=== PATIENT | male | born 1950 | race Caucasian/White ===

== ENCOUNTER 2018-05-17 17:20 | Emergency (ER) | payer MEDICARE ==
[2018-05-17] MEDS ORDERED: BUFFERED LIDOCAINE 10 ML SYRINGE SUBQ ONE (17:35)
--- NOTE | 2018-05-17 17:36 | ED Physician Documentation ---
PD HPI UPPER EXT INJURY - Stated complaint Stated Complaint: L HAND LAC/SHANNON NAIL - Chief complaint Chief Complaint: Laceration - History obtained from History obtained from: Patient - History of Present Illness Location: Left (Obtain a gentleman who is up-to-date on tetanus fell while building a deck, not work-related and ripped his hand on a shannon nail just prior to arrival.) Review of Systems Constitutional: reports: Reviewed and negative Throat: reports: Reviewed and negative Cardiac: reports: Reviewed and negative PD PAST MEDICAL HISTORY - Allergies Allergies/Adverse Reactions: Allergies Allergy/AdvReac Type Severity Reaction Status Date / Time No Known Drug Allergies Allergy Verified 05/17/18 17:25 PD ED PE NORMAL - Vitals Vital signs reviewed: Yes - General General: Alert and oriented X 3, No acute distress - Extremities Extremities: Other (In the webspace of the left hand between the first and second digits there is a 1 cm curved laceration without neurovascular or tendon compromise.) - Neuro Neuro: Alert and oriented X 3, Normal speech Results - Vitals Vitals: Vital Signs - 24 hr 05/17/18 17:23 Temperature 36.8 C Heart Rate 77 Respiratory 16 Rate Blood Pressure 140/100 H O2 Saturation 99 Oxygen O2 Source Room air - Rads (name of study) L hand 3v Radiology: EMP read contemporaneously (There is some metal dust in the laceration) Procedures - Laceration (location) L hand Length in cm: 1 Wound type: Curved Anesthesia: Lidocaine 1%, With bicarb Wound Preparation: Hibiclens, Irrigated copiously NS Skin layer closure: Nylon, Interrupted, Size #-0 - enter number (4-0), Sutures - enter # (3) Other: Tetanus UTD PD MEDICAL DECISION MAKING - ED course ED course: 67-year-old gentleman with laceration from a shannon nail. He is up-to-date on tetanus. The wound was cleansed and closed. An x-ray was done, no bony injury but he has some tiny metal flecks which are too small to retrieve. - Sepsis Event Vital Signs: Vital Signs - 24 hr 05/17/18 17:23 Temperature 36.8 C Heart Rate 77 Respiratory 16 Rate Blood Pressure 140/100 H O2 Saturation 99 Oxygen O2 Source Room air Departure - Departure Disposition: 01 Home, Self Care Clinical Impression: Laceration Condition: Good Record reviewed to determine appropriate education?: Yes Instructions: ED Laceration All Comments: Come back for any signs of infection which would include: Redness, swelling, drainage, increased pain, or fevers. Follow-up with your physician in 14 days for suture removal. Your blood pressure was elevated today on check into the emergency department. This does not mean that you have hypertension, it is a common phenomenon to come to the emergency department and have elevated blood pressure. I recommend that you see your primary care physician within the week to have it rechecked when you are feeling better. Discharge Date/Time: 05/17/18 19:17
--- NOTE | 2018-05-17 18:04 | XRAY Report ---
Reason: hand inj Procedure Date: 05/17/2018 Accession Number: [id number] / [id number] Procedure: XR - Hand 3 View LT CPT Code: FULL RESULT: EXAM: LEFT HAND RADIOGRAPHY EXAM DATE: 05/17/2018 05:55 PM. CLINICAL HISTORY: Fall. Hand injury. COMPARISON: None available. TECHNIQUE: 3 views. FINDINGS: No acute fracture or dislocation. Osseous alignment is normal. There is narrowing of the interphalangeal joints of all fingers. There are multiple punctate densities in the region of soft tissue laceration between the first and second finger web space. These may represent tiny foreign bodies. IMPRESSION: No acute fracture or dislocation of the left hand. Possible retained punctate foreign bodies in the first and second finger web space. Clinical correlation recommended. RADIA
[2018-05-17 19:17] VITALS: BP 141/79
== END 2018-05-17 19:17 | disposition home or self-care (01) ==
LOC: ED 17:20
DX: S61.422A Laceration with foreign body of left hand, initial encounter (principal); W19.XXXA Unspecified fall, initial encounter; Y93.H3 Activity, building and construction
CPT/HCPCS: 12001; 99283

== ENCOUNTER 2018-12-14 09:54 | Outpatient (CLI) | payer MEDICARE, OTHER | END 2018-12-14 09:55 | disposition home or self-care (01) | LOC: SC 09:54 | PROVIDERS: ATTEND Internal Medicine Pulmonary Disease | DX: G47.33 Obstructive sleep apnea (adult) (pediatric) (principal) | CPT/HCPCS: 99203; G0463; 99212 ==

== ENCOUNTER 2019-03-23 10:18 | Outpatient (CLI) | payer MEDICARE, OTHER ==
[2019-03-23 11:12] VITALS: BP 144/68
--- NOTE | 2019-03-23 11:12 | SLEEP CARE CONSULTATION ---
Information from patient questionnaire entered by Sharon Tomlin. I have reviewed and concur with the information entered by Sharon Tomlin. This document represents the service I personally performed and the decisions made by me, Daisy Aguilera, RN, MSN, [employer]. History of Present Illness Previous diagnosis: Mild, Obstructive Sleep Apnea-Hypopnea Syndrome AHI: 13.2 Reason for CPAP/BiPAP follow up: first compliance after device update Equipment type: CPAP Equipment obtained from: [facility] Mask style: Nasal (Air fit) Backup mask available: Yes Last cushion change: 2 months CPAP Compliance Data - Data Reviewed with Patient Average duration of nightly device use: 7.75 Compliance rate %: 100 Current pressure setting (cmH2O): 8 Average residual AHI: 5.1 Average large leak: 3.6 liters / minute Subjective Patient concerns: reports: mask discomfort (irritation of mask on left cheek with small scabbed papule - healing with excema cream), nasal congestion (much better with use of humidifier ). denies: aerophagia, air blowing in eyes, mask leak noise, condensation in mask/hose, dry mouth, nose, throat, epistaxis Observed to snore while using device: No On therapy, patient: reports: sleeping better, awakening more refreshed (intermittently), being more awake and alert during the day, more rested overall. denies: drowsiness while driving Initial [place] Sleepiness Scale score: 9 Current [place] Sleepiness Scale score: 8 Allergies and Home Medications Known drug allergies: Yes (cytoxan - bladder cancer) Allergy and home medication list: Medication List Medication Name (generic/name brand) Strength & Dosage Pentoxifylline ER (Trental) 400mg tab one twice daily Amlodipine Besylate 10mg tab one daily Benazepril 40mg tab one daily Mycophenolate (Cellcept) 500mg tab two twice daily Pravastatin 10mg tab one daily at bedtime Diclofenac Socium 1% Transdermal Gel Apply as directed Metronidazole (Metrocream) As directed Multivitamin Tab one daily Vitamin D3 400IU tab three daily Lutein 20mg tab two daily [place]-3 Fish Oil 3000mg cap two twice daily Curcumin (Turmeric) 1000mg cap one twice daily Niaspan 500mg tab one daily Doxycycline [place] 50mg cap one daily Amox/Clav-875 Tab one daily as directed Alavert or Esperanza 10mg for allergies Review of Systems Review of systems same as previous: Yes Physical Exam Blood Pressure: 144/68 Cuff size: regular Heart Rate: 63 O2 Saturation: 98 Height: 5 ft 6.8 in Weight (kg): 74.389 kg Body Mass Index: 25.8 BMI Classification: Overweight Impression and Plan 1. Obstructive Sleep Apnea-Hypopnea Syndrome, with good treatment compliance and good apnea control. On CPAP therapy, the patient has better sleep quality and is more rested overall. His sleep pattern is also regular so it is unclear why he only intermittently awakens unrefreshed. For his skin irritation from mask body on left cheek, I showed him cloth barriers that can be obtain from [employer] cheek and pamphlet given. He can temporarily use a part of old sock. For slightly elevated AHI, I will increased his CPAP pressure to 9cmH20. He denies ingestion of muscle relaxant, pain medication or alcohol prior to bed. His weight is stable and he is not planning on losing weight so I will not put on an autoCPAP. I discusssed symptoms to report for pressure adjustment. I also showed him how he could track his data on his device using a Localist. In addition I infomred him he could track his CPAP use and data on a IRA for a smart phone. Patient's apnea severity and rationale for treatment to reduce apnea, improve sleep quality and reduce cardiovascular and cerebrovascular events was reviewed and patient's questions answered. I also reviewed the benefit of consistent device use of CPAP for his hypertension. . Change CPAP pressure to 9 cm H2O. Notify me if snoring with the mask or feeling that the pressure is too much or too little. cloth barrier for skin irritation Return for follow-up in one year, or sooner if concerns arise. I spent 100% of this 33 minute visit face to face with the patient with greater than 50% of this was spent time counseling the patient and coordination of care.
== END 2019-03-23 10:19 | disposition home or self-care (01) ==
LOC: SC 10:18
PROVIDERS: ATTEND Nurse Practitioner Family
DX: G47.33 Obstructive sleep apnea (adult) (pediatric) (principal)
CPT/HCPCS: 99214; G0463; 99212